=== PATIENT | female | born 1945 | race Caucasian/White ===

== ENCOUNTER 2017-06-05 17:25 | Emergency (ER) | payer MEDICARE, OTHER ==
[~2017-06-05] VITALS: Ht 147.3 cm; Wt 44.5 kg
[~2017-06-05 17:25] MED LIST: ALBU8.5H7 IH; DULO60CA7 PO; FLUT1DIS3 IH; FOLI1TAB21 PO; HYDR-3105 PO; HYDR200T PO; HYDR200T5 PO; LEVO75TA6 PO; LOSA1TAB25 PO; METH25VI22 IJ; METH750T94 PO; MOME17SP; MONT10TA6 PO; NEBI10TA3 PO; RANI300C PO; ROPI2TAB3 PO; TEMA30CA PO; TIOT18CA IH; VENL75TA PO
--- NOTE | 2017-06-05 17:25 | NUR ---
ARRIVAL PT ARRIVED VIA STRETCHER BY [facility] TO ER 2 C/O LEFT HIP PAIN POST FALL LAST NIGHT AT [facility]. PT STATES SHE "GOT DIZZY AND FELL". PT ALSO C/O HEAD AND LEFT RIB PAIN. PT ARRIVED WITH [facility] CATHETER IN PLACE. PT STATES IS ON HOSPICE. PT STATES HAS BROKEN BOTH HIPS IN THE PAST. HER RIGHT HIP WAS PREVIOUSLY OPERATED ON BY DR SANTIAGO AND THE LEFT HIP WAS OPERATED ON BY "SOMEONE IN [place]". EDP NOTIFIED OF PT ARRIVAL.
[2017-06-05 17:44] VITALS: BP 114/65
[2017-06-05] MEDS ORDERED: SOLU-MEDROL IV STA (17:46)
[2017-06-05 18:03] LABS: BASOPHIL % 0.3 % (0.0-0.2); EOSINOPHIL # 0.2 10^3/uL (0.0-0.2); EOSINOPHIL % 2.4 % (0.0-5.0); HEMOGLOBIN 7.2 g/dL (12.0-15.0); LYMPHOCYTES # 1.7 10^3/uL (1.0-4.8); LYMPHOCYTES % 18.1 % (24.0-44.0); MEAN CELL HGB 30.5 pg (26-34); MEAN CELL HGB CONCENTRATION 27.9 g/dL (33-37); MEAN CORP VOLUME 109.3 fL (78-100); MEAN PLATELET VOLUME 9.7 fL (7.8-11.0); MONOCYTES # 1.1 10^3/uL (0.3-0.8); MONOCYTES % 11.9 % (5.0-12.0); NEUTROPHIL # 6.3 10^3/uL (1.8-7.7); NEUTROPHILS % 67.1 % (41.0-85.0); RED CELL DISTRIBUTION WIDTH 15.5 % (11.5-14.5); WHITE BLOOD CELL 9.4 10^3/uL (4.5-11.0)
--- NOTE | 2017-06-05 18:03 | NUR ---
HOSPICE NURSE HOSPICE NURSE TO NURSES STATION AT THIS TIME STATING THAT PT WILL HAVE TO REVOKE HOSPICE IF PT HAS TO HAVE SURGERY ON HIP.
[2017-06-05] MEDS ORDERED: SOLU-MEDROL ONE (18:06)
--- NOTE | 2017-06-05 18:20 | NUR ---
CT PT TAKEN TO CT
--- NOTE | 2017-06-05 18:24 | PCM.EKG ---
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
[2017-06-05 18:31] LABS: CALCIUM 8.3 mg/dL (8.4-10.5)
[2017-06-05 18:35] LABS: CARBON DIOXIDE 41.4 mmol/L (20.0-32)
[2017-06-05 18:45] VITALS: BP 134/67
--- NOTE | 2017-06-05 18:45 | ER.PDOC ---
General Chief Complaint: Trauma Stated Complaint: LT HIP FX Time seen by MD: 18:42 Source: patient Exam Limitations: no limitations History of Present Illness Initial Comments Left hip pain from falling yesterday Timing/Duration: yesterday Where Occured: usp Quality: moderate Method of Injury/Prior Injury: fell Location: hip (L) Symptoms prior to fall: denies symptoms Other Injuries: chest (left ribs), face Allergies: Coded Allergies: levofloxacin (Verified Allergy, Unknown, CAUSED N[place] DORSEY, 04/26/14) cefdinir (Verified Adverse Reaction, Unknown, "CAUSES THE SHAKES", 04/26/14) diazepam (Verified Adverse Reaction, Unknown, "MAKES ME FEEL WEIRD", ) Past Medical History Medical History: COPD, GERD, hypertension, thyroid disease Surgical History: back, , hip, hysterectomy, neck LMP (females 10-50): hysterectomy Social History Smoking: less than 1 pack/day Alcohol Use: none Drug Use: none Review of Systems Constitutional: no symptoms reported Respiratory: no symptoms reported Cardiovascular: no symptoms reported Gastrointestinal: no symptoms reported Genitourinary: no symptoms reported Musculoskeletal: see HPI All Other Systems: Reviewed and Negative Physical Exam General Appearance: No Apparent Distress, WD/WN Extremities: hip pain on movement (left), shortening of leg EENT: eyes nml inspection, swelling (left frontal area) Neck: nml inspection, non-tender Cardiovascular/Respiratory: Regular Rate, Rhythm, No M/R/G, Normal Peripheral Pulses, No JVD, Normal Breath Sounds, No Respiratory Distress Abdominal: Non-Tender, No Organomegaly, No Hernia Back: Normal Inspection, No CVA Tenderness Extremities: Pain With Movement (left hip) Neuro/Psych: Alert, 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/symmetrical, mood/effect nml, No Motor/Sensory Deficits, Relexes nml Skin: Normal Color, Warm/Dry Results/Orders Results/Orders Laboratory Tests Test 06/05/17 00:00 06/05/17 17:44 Sodium Level 137 mmol/L (132-145) Potassium Level 3.5 mmol/L (3.6-5.2) Chloride Level 96.0 mmol/L (96-109) Carbon Dioxide Level 41.4 mmol/L (20.0-32) Anion Gap 3.1 Blood Urea Nitrogen 14 mg/dL (7-18) Creatinine 0.71 mg/dL (0.59-1.40) Estimated GFR () 97.6 (>/=60) BUN/Creatinine Ratio 19.0 Glucose Level 98 mg/dL (70-110) Calcium Level 8.3 mg/dL (8.4-10.5) Total Bilirubin 0.4 mg/dL (0.2-1.0) Aspartate Amino Transf (AST/SGOT) 24 U/L (0-35) Alanine Aminotransferase (ALT/SGPT) 12 U/L (12-78) Alkaline Phosphatase 76 U/L (50-136) Total Protein 6.8 g/dL (6.4-8.2) Albumin 2.6 g/dL (3.4-5.0) Globulin 4.2 White Blood Count 9.4 10^3/uL (4.5-11.0) Red Blood Count 2.36 10^6/uL (4.00-5.20) Hemoglobin 7.2 g/dL (12.0-15.0) Hematocrit 25.8 % (36.0-46.0) Mean Corpuscular Volume 109.3 fL (78-100) Mean Corpuscular Hemoglobin 30.5 pg (26-34) Mean Corpuscular Hemoglobin Concent 27.9 g/dL (33-37) Red Cell Distribution Width 15.5 % (11.5-14.5) Platelet Count 373 10^3/uL (150-400) Mean Platelet Volume 9.7 fL (7.8-11.0) Neutrophils (%) (Auto) 67.1 % (41.0-85.0) Lymphocytes (%) (Auto) 18.1 % (24.0-44.0) Monocytes (%) (Auto) 11.9 % (5.0-12.0) Neutrophils # (Auto) 6.3 10^3/uL (1.8-7.7) Lymphocytes # (Auto) 1.7 10^3/uL (1.0-4.8) Monocytes # (Auto) 1.1 10^3/uL (0.3-0.8) Absolute Immature Granulocyte (auto 0.02 10^3 u/L (0-2) Eosinophils % 2.4 % (0.0-5.0) Basophils % 0.3 % (0.0-0.2) Basophils # 0.0 10^3/uL (0.0-0.1) Eosinophil Count 0.2 10^3/uL (0.0-0.2) Prothrombin Time 9.3 SEC (9.8-11.9) Prothrombin Time INR (Non-Therap) 0.9 Activated Partial Thromboplast Time 25.6 SEC (24.67-30.72) Percent Immature Gran (Cell Imm) 0.20 % (0.00-0.50) Administered Medications Medications (Trade) Dose Ordered Sig/Christina Route PRN Reason Start Time Stop Time Status Last Admin Dose Admin Methylprednisolone Sodium Succinate (Solu-Medrol) 125 mg STAT STAT IV 06/05/17 17:46 06/05/17 17:47 DC 06/05/17 18:[address] Clarke came and saw patient in the ED and discharged her home to follow up with him in the office. EKG/XRAY/CT/US XRAY Comments: Fracture greater trochanter of left proximal femur CT Comments: NOthing acute on CT head and chest Course Blood Pressure Systolic: 132 Blood Pressure Diastolic: 65 Blood Pressure Mean: 81 Departure Time of Disposition: 20:45 Disposition: 01 HOME, SELF-CARE Impression: Primary Impression: Hip fracture, left Additional Impressions: Anemia Contusion of head Contusion, chest wall Condition: Stable Referrals: BARBARA ZELAYA MD (PCP) PRIMARY CARE PROVIDER Additional Instructions: Tramadol F/U with Dr. Clarke in 2 weeks F/U with your residential Physician Duration or Time Spent with Pa: 2 hours Problem Qualifiers Primary Impression: Hip fracture, left Encounter type: initial encounter Fracture type: closed Qualified Codes: S72.002A - Fracture of unspecified part of neck of left femur, initial encounter for closed fracture Additional Impressions: Anemia Anemia type: unspecified type Qualified Codes: D64.9 - Anemia, unspecified Contusion of head Encounter type: initial encounter Contusion of head detail: unspecified part of head Qualified Codes: S00.93XA - Contusion of unspecified part of head , initial encounter Contusion, chest wall Encounter type: initial encounter Laterality: left Qualified Codes: S20.212A - Contusion of left front wall of thorax, initial encounter BRIELLE JAIME MD Jun 05, 2017 18:45
--- NOTE | 2017-06-05 19:06 | DIREP ---
PROCEDURE:XRAY HIP MIN 2VW-LT COMPARISON:[facility], , XRAY HIP MIN 2VW-LT, 10/21/2014, 06:25 AM. INDICATIONS:pain from falling FINDINGS: BONES:Minimally displaced fracture involving the greater trochanter of the left proximal femur. JOINTS:Total left hip arthroplasty. The prosthetic joint appears intact and appropriately aligned. No convincing evidence to suggest hardware loosening. SOFT TISSUES:Apparent mild soft tissue swelling about the left hip. OTHER:No additional findings. CONCLUSION: 1. Minimally displaced fracture involving the greater trochanter of the left proximal femur. 2. Total left hip arthroplasty. 3. Apparent soft tissue swelling about the left hip. Dictated by: Jovi Islas M.D. On 06/05/2017 at 07:04 PM
--- NOTE | 2017-06-05 19:08 | DIREP ---
PROCEDURE:CT HEAD OR BRAIN W/O CONTRAST COMPARISON:[facility], CT, CT HEAD BRAIN W/O CONTRAST, 01/16/2016, 07:17 PM. INDICATIONS:pain from falling TECHNIQUE:CT images were created without intravenous contrast. FINDINGS: VENTRICLES:The ventricles are normal in size and configuration. 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 CEREBELLUM:Negative. BRAINSTEM:Negative. BASAL CISTERNS:Negative. HEMORRHAGE:No MASS LESION:No ACUTE INFARCT:No SKULL:Normal. SINUSES:Normal. OTHER:None CONCLUSION: 1. [id number] leukoaraiosis, otherwise negative head CT Dictated by: Juan Pablo Gurrola MD on 06/05/2017 at 07:06 PM
--- NOTE | 2017-06-05 19:10 | DIREP ---
PROCEDURE:XRAY PELVIS 1-2 VWS COMPARISON:[facility], CR, XRAY PELVIS 1-2 VWS, 10/21/2014, 06:25 AM. INDICATIONS:Left hip pain from falling FINDINGS: Right total hip replacement remains unchanged. There is a new left hip hemiarthroplasty that appears in anatomic alignment. Generalized osteopenia. Bilateral buttock injection granulomas. Cholecystectomy clips are present in the right upper quadrant. CONCLUSION: 1. Interval placement of left hip hemiarthroplasty with stable right total hip replacement. 2. No acute deformities. Dictated by: Juan Pablo Gurrola MD on 06/05/2017 at 07:08 PM
--- NOTE | 2017-06-05 19:14 | DIREP ---
PROCEDURE:CT CHEST W/O COMPARISON:CT, CT ABD/PELVIS W/O, 01/16/2016, 05:06 PM. [facility], CT, CT CHEST W/O, 01/16/2016, 07:36 PM. INDICATIONS:poss fracture TECHNIQUE:Helical sections through the chest were performed from the lung apices through the diaphragms without IV contrast. Sagittal and coronal reconstructions are obtained from source images. FINDINGS: LUNGS:Hyperinflation, suggestive of underlying COPD. Mild interstitial thickening throughout the bilateral hemithoraces. Mild biapical pleural parenchymal scarring, right greater than left. No suspicious airspace consolidation, pleural effusion or pneumothorax. Small calcified granuloma within the right upper lobe. CARDIAC:The heart is not enlarged. Diffuse coronary artery calcifications. No pericardial effusion. MEDIASTINUM:The thyroid gland is not appear significantly enlarged. There is heterogeneity and calcification of the right thyroid lobe. Bilateral carotid artery calcifications. No suspicious mediastinal lymphadenopathy. AORTA:No aneurysmal dilatation. Fairly diffuse calcifications. CHEST WALL:No acute chest wall abnormality. No significant chest wall hematoma is appreciated. LIMITED ABDOMEN:Soft tissue fullness within the region of the pancreatic head and duodenum. This is incompletely evaluated. BONES:Previously treated compression deformity of the mid thoracic spine. This is just superior to a mild superior endplate compression deformity which is fairly similar to the previous study. Additional moderate superior endplate compression deformity within the mid thoracic spine is also unchanged from the previous study. No acute abnormality identified. Mild degenerative changes. CONCLUSION: 1. COPD without superimposed acute cardiopulmonary abnormality. 2. No displaced rib fracture identified. Stable compression deformities of the thoracic spine. Dictated by: Jovi Islas M.D. On 06/05/2017 at 07:06 PM
--- NOTE | 2017-06-05 19:14 | NUR ---
KIM BROOKE FROM [facility] CALLED FOR UPDATE ON PT.
[2017-06-05 19:34] VITALS: BP 112/60
--- NOTE | 2017-06-05 20:37 | NUR ---
DISCHARGE [facility] CALLED FOR DISCHARGE
[2017-06-05 20:56] VITALS: BP 104/53
[2017-06-05] MEDS ORDERED: NORCO 5MG PO STA (20:56)
[2017-06-05] MEDS ORDERED: NORCO 5MG PO ONE (20:56)
--- NOTE | 2017-06-05 20:56 | NUR ---
DISCHARGE [facility] CALLED TO SAY THEY WILL BE HERE IN 1 HOUR
[2017-06-05 20:57] VITALS: BP 104/53
--- NOTE | 2017-06-05 21:58 | ER.CONS ---
DATE OF SERVICE: 06/05/2017 CHIEF COMPLAINT: Painful left hip. HISTORY OF PRESENT ILLNESS: The patient is a 71-year-old female that lives at the care home in [place]. She fell last night at the care home injuring the left hip. The patient is a non-ambulator for the last 2 months for reasons unclear to me. She states that basically she transfers from her bed into a wheelchair, goes to the bathroom and transfers onto the commode and then transfers back to the wheelchair. The patient reportedly has been receiving morphine and hydrocodone at the care home. She was sent to the [facility] because of complaints of pain about the left hip. The patient has a chronic indwelling Escamilla catheter that she has had for 2 months. PHYSICAL EXAMINATION: The patient's exam today shows that she has some tenderness about the left greater trochanter. There is mild swelling. She has decreased range of motion about the hip secondary to pain. Her upper extremities and the right lower extremity have no areas of tenderness or deformity. The patient neurologically is awake and alert. She is oriented x 3. Cranial nerves 2-12 are grossly intact. She has good dorsi and plantar flexion of both feet and ankles. IMAGING STUDIES: The patient's x-rays reveal a nondisplaced greater trochanteric fracture about the left hip. She has a preexisting hemiarthroplasty from previous surgery. The prosthesis is stable. ASSESSMENT: Nondisplaced greater trochanteric fracture, left hip. PLAN: At this point, I would advocate that the patient be returned to the care home. She is a nonambulator. She is getting satisfactory pain medication at the care home. She will be allowed to weightbear as tolerated using her walker for the transfers. I can see her back in my office in 2 weeks. I do not see any surgical indications in this patient. Adiel Clarke MD DR: SHIRA/meri JOB# [id number]
--- NOTE | 2017-06-05 22:16 | NUR ---
REPORT REPORT CALLED TO [facility]
== END 2017-06-05 22:15 | disposition home or self-care (01) ==
LOC: EDBD 17:25 → ER 17:25
DX: S72.115A Nondisplaced fracture of greater trochanter of left femur, initial encounter for closed fracture (principal); S00.03XA Contusion of scalp, initial encounter; S20.212A Contusion of left front wall of thorax, initial encounter; D64.9 Anemia, unspecified; E07.9 Disorder of thyroid, unspecified; I10 Essential (primary) hypertension; J44.9 Chronic obstructive pulmonary disease, unspecified; K21.9 Gastro-esophageal reflux disease without esophagitis; F17.200 Nicotine dependence, unspecified, uncomplicated; Z88.1 Allergy status to other antibiotic agents; Z88.8 Allergy status to other drugs, medicaments and biological substances; Z90.710 Acquired absence of both cervix and uterus; W19.XXXA Unspecified fall, initial encounter; Y93.89 Activity, other specified; Y92.128 Other place in nursing home as the place of occurrence of the external cause; Y99.8 Other external cause status
CPT/HCPCS: 36415; 70450; 71250; 72170; 73502; 80053; 85025; 85610; 85730; 93005; 96374; 99285; J2930